=== PATIENT | female | born 1960 | race Hispanic/Latino ===

== ENCOUNTER 2022-08-21 16:23 | Inpatient (IN) | payer OTHER ==
[~2022-08-21] VITALS: Ht 157.5 cm; Wt 46.0 kg
[2022-08-21] MEDS ORDERED: ONDANSETRON HCL INJ 2MG/ML 2ML 2 MG/ML VIAL IV STA (16:43)
[2022-08-21] MEDS ORDERED: SODIUM CHLORIDE 0.9% 1000ML 1,000 ML IV STA (16:43)
[2022-08-21 17:02] LABS: BASOPHILS % 0.3 % (0.0-1.0); HEMATOCRIT 38.6 % (34.2-44.1); HEMOGLOBIN 12.9 g/dL (12.0-16.0); LYMPHOCYTES # (AUTO) 3.2 (1.0-3.2); LYMPHOCYTES % 23.9 % (18.0-39.1); MEAN CORPUSCULAR HEMOGLOBIN 30.1 pg (28-32); MEAN CORPUSCULAR HGB CONC 33.4 g/dL (31-35); MEAN CORPUSCULAR VOLUME 90.2 fL (81-99); MONOCYTES # (AUTO) 1.2 (0.2-0.8); MONOCYTES % 8.6 % (4.4-11.3); NEUTROPHILS % 66.8 % (38.7-80.0); PLATELET COUNT 274 x10e3/uL (140-360); RED BLOOD COUNT 4.28 x10e6/uL (3.6-5.1); RED CELL DISTRIBUTION WIDTH 12.6 % (11.7-14.4)
[2022-08-21 17:47] LABS: ALBUMIN 2.6 g/dL (3.5-5.0); ALBUMIN/GLOBULIN RATIO 0.7 (0.8-2.0); ANION GAP 17.2 mmol/L (8-16); CREATININE, SERUM 0.71 mg/dL (0.57-1.11); POTASSIUM 3.2 mmol/L (3.5-5.1)
[2022-08-21 17:54] LABS: CREATINE KINASE MB 0.7 ng/mL (0-5.0)
[2022-08-21] MEDS ORDERED: IOPAMIDOL 370 MG/ML 100 ML INFUS..BTL INJ ONE (18:06)
[2022-08-21 18:27] LABS: CLARITY,URINE SL CLOUDY (CLEAR); COLOR,URINE AMBER (YELLOW); KETONES,URINE 2+ (NEGATIVE); LEUKOCYTE ESTERASE ,URINE NEGATIVE (NEGATIVE); NITRITE,URINE NEGATIVE (NEGATIVE); PROTEIN,URINE DIPSTICK NEGATIVE (NEGATIVE); URINE UROBILINOGEN >=8 mg/dL (0.2 - 1)
[2022-08-21 18:30] LABS: AMPHETAMINES SCREEN,URINE NEGATIVE (NEGATIVE); BENZODIAZEPINES SCREEN,URINE NEGATIVE (NEGATIVE); PHENCYCLIDINE SCREEN,URINE NEGATIVE (NEGATIVE)
[2022-08-21 18:36] LABS: AMORPHOUS SEDIMENT,URINE MODERATE (FEW); BACTERIA,URINE FEW /HPF; EPITHELIAL CELLS,URINE MODERATE /LPF; WBC,URINE (MAN) 0-5 /HPF (0-5)
[2022-08-21 20:58] VITALS: BP 129/60
[2022-08-21] MEDS: SODIUM CHLORIDE 0.9% 1000ML 1,000 ML IV SCH (21:16)
[2022-08-21] MEDS: Morphine 2mg Syringe 2 MG/ML SYR IV PRN (21:30)
[2022-08-21] MEDS ORDERED: DICYCLOMINE HCL20 MG PO (21:45)
[2022-08-21] MEDS ORDERED: LATUDA120 MG PO (21:45)
[2022-08-21] MEDS ORDERED: CITALOPRAM HBR40 MG PO (21:45)
[2022-08-21] MEDS ORDERED: TRAZODONE HCL100 MG PO (21:45)
[2022-08-21] MEDS ORDERED: OXCARBAZEPINE300 MG PO (21:45)
[2022-08-21] MEDS ORDERED: ALPRAZOLAM1 MG PO (21:45)
[2022-08-21] MEDS ORDERED: PANTOPRAZOLE SO40 MG PO (21:45)
[2022-08-21] MEDS ORDERED: DICYCLOMINE HCL 20 MG TAB PO PRN (22:00)
[2022-08-21] MEDS ORDERED: ALPRAZOLAM 1 MG TAB PO PRN (22:00)
[2022-08-21 22:02] VITALS: BP 129/60
[2022-08-21 22:04] VITALS: BP 129/60
[2022-08-21] MEDS: TRAZODONE HCL 50 MG TAB PO PRN (23:00)
[2022-08-22] VITALS (8 sets, daily range): BP systolic 109–177; BP diastolic 50–67
[2022-08-22] MEDS: METRONIDAZOLE 500MG/NS 100ML 100 ML IV SCH ×3 (00:27→15:54)
[2022-08-22] MEDS: SODIUM CHLORIDE 0.9% 1000ML 1,000 ML IV SCH ×3 (05:04→20:34)
[2022-08-22] MEDS: Morphine 2mg Syringe 2 MG/ML SYR IV PRN ×5 (05:05→22:08)
[2022-08-22 05:41] LABS: BASOPHILS # (AUTO) 0.1 (0.0-0.1); BASOPHILS % 0.5 % (0.0-1.0); EOSINOPHILS % 0.2 % (0.0-6.0); HEMATOCRIT 36.1 % (34.2-44.1); HEMOGLOBIN 12.4 g/dL (12.0-16.0); LYMPHOCYTES # (AUTO) 2.9 (1.0-3.2); LYMPHOCYTES % 22.4 % (18.0-39.1); MEAN CORPUSCULAR HGB CONC 34.3 g/dL (31-35); MEAN CORPUSCULAR VOLUME 87.2 fL (81-99); MONOCYTES # (AUTO) 1.2 (0.2-0.8); MONOCYTES % 9.4 % (4.4-11.3); NEUTROPHILS # (AUTO) 8.8 (2.1-6.9); NEUTROPHILS % 66.9 % (38.7-80.0); PLATELET COUNT 234 x10e3/uL (140-360); RED BLOOD COUNT 4.14 x10e6/uL (3.6-5.1); RED CELL DISTRIBUTION WIDTH 12.8 % (11.7-14.4)
[2022-08-22 06:22] LABS: CALCIUM 7.8 mg/dL (8.4-10.2); CREATININE, SERUM 0.56 mg/dL (0.57-1.11)
[2022-08-22 06:48] LABS: CREATINE KINASE MB 0.7 ng/mL (0-5.0)
[2022-08-22] MEDS ORDERED: POTASSIUM CHLORIDE 20 MEQ TAB CR PO ONE (07:35)
[2022-08-22] MEDS: PANTOPRAZOLE SOD 40 MG TABEC PO SCH (09:19)
[2022-08-22] MEDS: CITALOPRAM HYDROBROMIDE 20 MG TAB PO SCH (09:20)
[2022-08-22] MEDS: ONDANSETRON HCL INJ 2MG/ML 2ML 2 MG/ML VIAL IV PRN (11:01)
[2022-08-22] MEDS ORDERED: SODIUM CHLORIDE 0.9% 100 ML ONE (13:55)
[2022-08-22] MEDS ORDERED: IOPAMIDOL 370 MG/ML 100 ML INFUS..BTL INJ ONE (13:56)
[2022-08-22 14:38] LABS: CREATINE KINASE MB 0.9 ng/mL (0-5.0)
[2022-08-22 14:41] LABS: HIV 1&2 AB SCREEN NON-REACTIVE (NONREACTIVE)
[2022-08-22] MEDS ORDERED: CLONAZEPAM 0.5 MG TAB PO PRN (15:15)
[2022-08-22] MEDS: ALPRAZOLAM 1 MG TAB PO PRN (15:48)
[2022-08-22] MEDS ORDERED: LURASIDONE HCL 120 MG PO SCH (17:00)
[2022-08-22] MEDS ORDERED: OXCARBAZEPINE 300 MG TAB PO SCH (21:00)
[2022-08-22] MEDS: TRAZODONE HCL 50 MG TAB PO PRN (22:08)
[2022-08-23] VITALS: BP 112/85
[2022-08-23] MEDS: METRONIDAZOLE 500MG/NS 100ML 100 ML IV SCH ×2 (00:43→08:22)
[2022-08-23] MEDS: Morphine 2mg Syringe 2 MG/ML SYR IV PRN ×2 (02:26→06:35)
[2022-08-23] MEDS: ONDANSETRON HCL INJ 2MG/ML 2ML 2 MG/ML VIAL IV PRN ×2 (02:44→06:34)
[2022-08-23 04:00] VITALS: BP 157/71
[2022-08-23] MEDS: SODIUM CHLORIDE 0.9% 1000ML 1,000 ML IV SCH (05:14)
[2022-08-23 06:41] LABS: BASOPHILS % 0.2 % (0.0-1.0); EOSINOPHILS % 0.2 % (0.0-6.0); HEMATOCRIT 40.3 % (34.2-44.1); HEMOGLOBIN 13.2 g/dL (12.0-16.0); LYMPHOCYTES # (AUTO) 2.3 (1.0-3.2); LYMPHOCYTES % 17.3 % (18.0-39.1); MEAN CORPUSCULAR HGB CONC 32.8 g/dL (31-35); MEAN CORPUSCULAR VOLUME 91.6 fL (81-99); MONOCYTES # (AUTO) 1.4 (0.2-0.8); MONOCYTES % 10.3 % (4.4-11.3); NEUTROPHILS # (AUTO) 9.6 (2.1-6.9); NEUTROPHILS % 71.4 % (38.7-80.0); PLATELET COUNT 243 x10e3/uL (140-360); RED CELL DISTRIBUTION WIDTH 12.7 % (11.7-14.4)
[2022-08-23] MEDS: ALPRAZOLAM 1 MG TAB PO PRN (06:46)
[2022-08-23 07:18] LABS: ALANINE AMINOTRANSFERASE 10 IU/L (0-55); ALBUMIN 2.4 g/dL (3.5-5.0); ALBUMIN/GLOBULIN RATIO 0.6 (0.8-2.0); ALKALINE PHOSPHATASE 64 IU/L (40-150); ANION GAP 13.4 mmol/L (8-16); BLOOD UREA NITROGEN < 5 mg/dL (7-26); CALCIUM 8.2 mg/dL (8.4-10.2); CARBON DIOXIDE 26 mmol/L (22-29); CHLORIDE 100 mmol/L (98-107); CREATININE, SERUM 0.54 mg/dL (0.57-1.11); GLUCOSE 126 mg/dL (74-118); MAGNESIUM 1.6 MG/DL (1.3-2.1); POTASSIUM 3.4 mmol/L (3.5-5.1); SODIUM 136 mmol/L (136-145)
[2022-08-23 07:30] LABS: BUN/CREATININE RATIO 9 (6-25)
[2022-08-23 07:49] LABS: LIPASE 13 U/L (8-78); PHOSPHORUS 2.9 MG/DL (2.3-4.7)
[2022-08-23 07:53] VITALS: BP 147/53
[2022-08-23] MEDS: CITALOPRAM HYDROBROMIDE 20 MG TAB PO SCH (08:22)
[2022-08-23] MEDS: PANTOPRAZOLE SOD 40 MG TABEC PO SCH (08:23)
== END 2022-08-23 08:55 | disposition short-term general hospital (02) | DRG 815 ==
LOC: ER 16:45 → ERHOLD 19:52 → MED/SURG3 20:56
PROVIDERS: ADMIT Internal Medicine; ATTEND Internal Medicine
DX: D73.5 Infarction of spleen (principal); Z68.1 Body mass index [BMI] 19.9 or less, adult; Z88.0 Allergy status to penicillin; Z90.49 Acquired absence of other specified parts of digestive tract; F17.210 Nicotine dependence, cigarettes, uncomplicated; F14.90 Cocaine use, unspecified, uncomplicated; I73.9 Peripheral vascular disease, unspecified; R63.4 Abnormal weight loss; F31.9 Bipolar disorder, unspecified; K57.90 Diverticulosis of intestine, part unspecified, without perforation or abscess without bleeding; Z20.822 Contact with and (suspected) exposure to COVID-19
CPT/HCPCS: 36415; 71045; 74174; 74177; 80048; 80053; 80307; 81001; 82550; 82553; 83690; 83735; 84100; 84484; 85025; 87390; 93005; 94799; 99284; G0433; G0435; J0696; J2270; J2405; J7030; J7050; Q9967